=== PATIENT | female | born 1990 | race Caucasian/White ===

== ENCOUNTER 2022-06-19 09:13 | Outpatient (CLI) | payer OTHER, SELFPAY | END 2022-06-19 09:14 | disposition home or self-care (01) | LOC: NFLDREF 06-20 08:27 | PROVIDERS: Visit Provider Physician Assistant | DX: Z01.419 Encounter for gynecological examination (general) (routine) without abnormal findings (principal); Z13.1 Encounter for screening for diabetes mellitus; Z13.6 Encounter for screening for cardiovascular disorders; Z12.4 Encounter for screening for malignant neoplasm of cervix; Z30.9 Encounter for contraceptive management, unspecified; Z23 Encounter for immunization | CPT/HCPCS: 80061; 82947 ==

== ENCOUNTER 2024-09-20 08:25 | Outpatient (CLI) | payer OTHER, SELFPAY | END 2024-09-20 08:26 | disposition home or self-care (01) | PROVIDERS: PCP Internal Medicine; Visit Provider Internal Medicine | DX: M25.50 Pain in unspecified joint (principal); R53.83 Other fatigue | CPT/HCPCS: 80053; 84443; 86038; 86200; 86431 ==